=== PATIENT | female | born 1975 | race Caucasian/White ===

== ENCOUNTER → 2024-01-24 17:20 | Outpatient (REF) | payer OTHER, SELFPAY | LOC: RAD 17:20 | PROVIDERS: ATTENDING PHYSICIAN Nurse Practitioner Adult Health | DX: N80.9 Endometriosis, unspecified (principal); N80.129 Deep endometriosis of ovary, unspecified ovary | CPT/HCPCS: 76830; 76856 ==

== ENCOUNTER → 2024-11-13 15:21 | Outpatient (REF) | payer OTHER, SELFPAY | LOC: HWWDC 15:21 | PROVIDERS: ATTENDING PHYSICIAN Nurse Practitioner Adult Health; FAMILY PHYSICIAN Family Medicine | DX: Z12.31 Encounter for screening mammogram for malignant neoplasm of breast (principal) | CPT/HCPCS: 77063; 77067 ==